=== PATIENT | female | born 1975 | race Caucasian/White ===

== ENCOUNTER 2017-11-11 17:33 | Emergency (ER) | payer OTHER ==
[2017-11-11 17:39] VITALS: BP 146/82
--- NOTE | 2017-11-11 19:10 | XRAY Preliminary Report ---
Exam: XR FOOT 3 VIEW LT IMPRESSION: No acute bony abnormality. [facility] SITE ID: [id number]
--- NOTE | 2017-11-11 19:25 | XRAY Report ---
EXAM: LEFT FOOT RADIOGRAPHY EXAM DATE: 11/11/2017 07:02 PM. CLINICAL HISTORY: Pain after dropping a stone bench on foot. COMPARISON: None. TECHNIQUE: 3 views. FINDINGS: Bones: Normal. No fractures or bone lesions. Joints: Normal. No subluxations. Soft Tissues: Moderate forefoot edema. IMPRESSION: No acute bony abnormality. [facility] Referring Provider Line: [phone] SITE ID: [id number]
--- NOTE | 2017-11-11 19:27 | ED Physician Documentation ---
History of Present Illness - Stated complaint Stated Complaint: LT FOOT PX - Chief complaint Chief Complaint: General - Additonal information Additional information: hx from pt 42 female dropped a stone bench on her L foot pain swelling bruising mid to distal foot Review of Systems : denies: Now EGA (denies) Musculoskeletal: reports: Extremity pain, Extremity swelling PD PAST MEDICAL HISTORY - Past Medical History Past Medical History: No - Past Surgical History Past Surgical History: No - Present Medications Home Medications: Ambulatory Orders Medication Instructions Recorded Confirmed No Known Home Medications [No 11/11/17 11/11/17 Known Home Medications] - Allergies Allergies/Adverse Reactions: Allergies Allergy/AdvReac Type Severity Reaction Status Date / Time No Known Drug Allergies Allergy Verified 11/11/17 17:38 - Social History Does the pt smoke?: No Smoking Status: Never smoker Does the pt drink ETOH?: No Does the pt have substance abuse?: No - Immunizations Immunizations are current?: Yes Results - Vitals Vitals: Vital Signs - 24 hr 11/11/17 17:36 Temperature 36.8 C Heart Rate 84 Respiratory 20 Rate Blood Pressure 146/82 H O2 Saturation 98 Oxygen O2 Source Room air - Rads (name of study) foot Radiology: See rad report (no fracture) Departure - Departure Disposition: 01 Home, Self Care Clinical Impression: Foot contusion Qualifiers: Encounter type: initial encounter Laterality: left Qualified Code(s): S90.32XA - Contusion of left foot, initial encounter Condition: Good Instructions: ED Contusion Foot Follow-Up: Estephanie Strauss MD [Primary Care Provider] - Comments: Thankfully the xray does not show any fractures It is Ok for you to go home Recommend an SRAA warp, ice and elevation to decrease the swelling. Tylenol and motrin for the pain Rarely the swellign can get so severe it cause decreased blood flow to the foot - if the pain becomes very severe or your toes become numb or discolored white or purple (not from bruising) come back to the ER Forms: Activity restrictions
== END 2017-11-11 20:15 | disposition home or self-care (01) ==
LOC: ED 17:33
DX: S90.32XA Contusion of left foot, initial encounter (principal); W20.8XXA Other cause of strike by thrown, projected or falling object, initial encounter
CPT/HCPCS: 99282; 99283